=== PATIENT | male | born 1950 | race Caucasian/White ===

== ENCOUNTER → 2021-06-29 09:49 | Outpatient (BNVA) | payer OTHER, SELFPAY | PROVIDERS: Visit Provider Surgery | DX: Z12.11 Encounter for screening for malignant neoplasm of colon (principal); Z20.822 Contact with and (suspected) exposure to COVID-19 | CPT/HCPCS: 87635 ==

== ENCOUNTER 2022-01-09 07:34 | Outpatient (CLI) | payer OTHER, SELFPAY ==
[2021-07-03 10:00] VITALS: BMI 28.7
--- NOTE | 2021-07-05 06:29 | W.PM.OPSFHP ---
Same Day Surgery H&P Indication for Procedure/HPI DATE OF PROCEDURE: July 05, 2021 CHIEF COMPLAINT/INDICATIONFOR SURGICAL PROCEDURE: History of colon cancer PREOP DIAGNOSIS: Family history of colon cancer PLANNED PROCEDRUE: Operation Date: 07/05/21 07:00 Proposed Procedures p Colonoscopy 06549 Z12.11(Not Applicable) - David Frey MD This is a pleasant 71 years old gentleman presents to my practice with history of his mother had colon cancer at the age of 80. Patient denies bleeding per rectum or weight loss. Last colonoscopy was about 6 years ago and he was referred to discuss potential repeat colonoscopy because of the family history. Interim history 07/05/2021 Patient comes today for colonoscopy ROS All systems have been reviewed negative except as per the above or per problem list Medications/Allergies* Home Medications Medication Instructions Recorded Confirmed Type alogliptin 25 mg tablet 12.5 mg PO DAILY tab 05/11/21 07/03/21 History apixaban 5 mg tablet 5 mg PO BID 05/11/21 07/03/21 History atorvastatin 80 mg tablet 80 mg PO DAILY 05/11/21 07/03/21 History diphenoxylate-atropine 2.5 1 tab PO Q6H PRN 05/11/21 07/03/21 History mg-0.025 mg tablet furosemide 40 mg tablet 40 mg PO BID 05/11/21 07/03/21 History gabapentin 300 mg capsule 300 mg PO Q6H cap 05/11/21 07/03/21 History levothyroxine 125 mcg capsule 125 mcg PO DAILY 05/11/21 07/03/21 History metformin 500 mg tablet 500 mg PO BID 05/11/21 07/03/21 History sacubitril 24 mg-valsartan 26 mg 0.5 tab PO BID tab 05/11/21 07/03/21 History tablet tamsulosin 0.4 mg capsule 0.4 mg PO DAILY 05/11/21 07/03/21 History tramadol 50 mg tablet 50 mg PO Q6H PRN 05/11/21 07/03/21 History amiodarone 200 mg PO DAILY 07/03/21 07/03/21 History carvedilol 3.125 mg PO BID 07/03/21 07/03/21 History Allergies/Adverse Reactions Allergy/AdvReac Type Severity Reaction Status Date / Time No Known Allergies Allergy Unverified 07/05/21 06:31 Pertinent History/Comorbid Conditions* Family History (Updated 05/11/21 @ 14:32 by OSMAR Mayer) Denies family history of Anesthesia complication Bleeding disorder Social History Smoking and tobacco status: former smoker Pertinent Exam Findings alert, oriented x 3, clear to auscultation bilaterally, regular rate & rhythm and procedure specific exam findings (Abdominal examination nontender nondistended soft) Recommendations Surgery/Procedure today (Colonoscopy with possible biopsy) Other Plans: Plan of care; After thorough history and physical examination and reviewing the chart, plan to perform screening colonoscopy. I discussed with the patient in details the risks,benefits,alternatives and indications.The risk of aspiration, bleeding, soft tissue injury, perforation of the colon and other potential concomitant complications were explained to the patient in details,also the potential need for Laproscoy/Laparotomy to repair any related complications including but not limited to colectomy and or Closotomy.The patient understood this well and did agree to proceed. Rationale was carefully and clearly discussed with the patient.Appropriate informed consent have been reviewed and signed All questions have been answered and all concerns have been addressed to patient's satisfaction. Verbal and written Instructions were given to the patient for colonoscopy prep Coding Level of Care Code Acute Intraoperative Neuro Tech for Roc Smiley
[2021-07-05 06:32] VITALS: BP 116/78; PULSE 79; RESP 18; TEMP 36; O2SAT 98
--- NOTE | 2021-07-05 06:43 | P.ANESASSM_ITS ---
Pre-Anesthetic Assessment Pre-Anesthetic Assessment: Height/Weight: Height 1.8 m Weight 93.44 kg Temp Pulse Resp BP Pulse Ox 96.8 F L 79 18 116/78 98 07/05/21 06:32 07/05/21 06:32 07/05/21 06:32 07/05/21 06:32 07/05/21 06:32 Preop Diagnosis: Family history of colon cancer Proposed Procedure: Operation Date: 07/05/21 07:00 Proposed Procedures p Colonoscopy 69299 Z12.11(Not Applicable) - David Frey MD Was Beta Mary Carmen taken within 24 hours: Yes Was Clonidine taken within 24 hours: N/A Last intake: Intake Last Liquid Date 07/04/21 Last Liquid Time 22:30 Last Solid Date 07/03/21 Last Solid Time 18:00 Social: Social History: Tobacco (former smoker) Exam: Pre-Anes Outpt Exam: alert, oriented x 3, clear to auscultation bilatera lly and regular rate & rhythm Airway: Submandibular: WNL Cervical ROM: WNL MP: 1 Dentition: Loose (multiple) Additional comments: multiple missing, very poor dentition History/ROS: No significant history except as noted Pulmonary: Pulmonary: BURROWS, Sleep apnea (cpap at night) and SOB (normal at rest) CV/HEM: CV/HEM: Afib and HTN Comments: ICD/PM since 2005 : : None reported Hepatic: Hepatic: None reported GI: GI: None reported Metabolic: Metabolic: DM, Hyperlipidemia and Thyroid Musc/skel: Musc/skel: Lower Back Pain Neuropsych: Neuropsych: None reported Anesthetic Plan: ASA status: 3 Anesthesia: Anesthesia Evaluation and MAC Risk of > 500 ml blood loss (7ml/kg in children): No PFSH Anesthesia PFSH: Family History Denies family history of Anesthesia complication Bleeding disorder Social History Smoking and tobacco status: former smoker Data Anesthesia Cardiac Studies: No Data to Display
[2021-07-05] MEDS: sodium chloride 0.9% 1,000 ML 30 ML IV (06:52)
[2021-07-05 06:54] LABS: Glucose Point of Care 96 mg/dL (70-110)
[2021-07-05 07:30] VITALS: BP 106/63; PULSE 83; RESP 18; TEMP 36.3; O2SAT 96
[2021-07-05 07:44] VITALS: BP 101/71; PULSE 65; RESP 18; O2SAT 93
--- NOTE | 2021-07-05 09:06 | ANE.PACU2 ---
Inpatient post-anesthesia follow up: Airway intact: Yes Vital signs: Temperature 97.4 F Pulse Rate 65 Respiratory Rate 18 Blood Pressure 101/71 Pulse Oximetry 93 Oxygen Delivery Me thod Room Air Oxygen Flow Rate 10 Fraction of Inspir ed Oxygen Hydration adequate: Yes Mental status: Baseline
--- NOTE | 2022-01-09 | XR_ITS ---
WS: [id number] TIBIA-FIBULA LEFT TECHNIQUE: 2 views of the left tibia-fibula CLINICAL INFORMATION: LEFT LEG PAIN COMPARISON: None. FINDINGS: No evidence of acute fracture dislocation. Normal tibiotalar joint. Normal visualized tibia and fibul a. Vascular calcification. Plantar calcaneal spurring. Achilles enthesophyte. Moderate degenerative n arrowing medial joint compartment. Chondrocalcinosis. Hypertrophic patella. XR/XR tibia fibula LT 2V [id number] IMPRESSION: No evidence of acute fracture or dislocation.
== END 2022-01-09 07:35 | disposition home or self-care (01) ==
LOC: RADOUTREAD 01-10 07:41
PROVIDERS: Surgery; PCP Internal Medicine; Visit Provider Nurse Practitioner Family
PROC: 0DJD8ZZ Inspection of Lower Intestinal Tract, Via Natural or Artificial Opening Endoscopic (ICD-10-PCS; CPT 45378; principal; 2021-07-05 07:00)
DX: Z12.11 Encounter for screening for malignant neoplasm of colon (principal); Z80.0 Family history of malignant neoplasm of digestive organs; K57.30 Diverticulosis of large intestine without perforation or abscess without bleeding; Z87.891 Personal history of nicotine dependence; I48.91 Unspecified atrial fibrillation; I10 Essential (primary) hypertension; E11.9 Type 2 diabetes mellitus without complications; E78.5 Hyperlipidemia, unspecified; M79.605 Pain in left leg
CPT/HCPCS: 36416; 82962; 96360; G0121; J2704; J7030